=== PATIENT | female | born 1970 | race Caucasian/White ===

== ENCOUNTER 2017-07-26 17:07 | Emergency (ER) | payer BC, SELFPAY ==
[~2017-07-26] VITALS: Ht 157.5 cm; Wt 62.7 kg
[2017-07-26] MEDS ORDERED: PRED10PA2 PO (17:34)
[2017-07-26] MEDS ORDERED: LISI10TA4 PO (17:34)
[2017-07-26] MEDS ORDERED: FOLI1TAB4 PO (17:34)
[2017-07-26] MEDS ORDERED: NAPR500T PO (18:56)
[2017-07-26] MEDS ORDERED: SOMA350T PO (18:56)
[2017-07-26] MEDS ORDERED: diazePAM 5 MG TAB PO ONE (19:00)
[2017-07-26] MEDS ORDERED: NAPROXEN 250 MG TAB PO ONE (19:00)
[2017-07-26 19:23] VITALS: BP 122/81
== END 2017-07-26 19:48 | disposition home or self-care (01) ==
LOC: M ED 17:07
DX: M43.6 Torticollis (principal); M54.12 Radiculopathy, cervical region; I10 Essential (primary) hypertension; Z87.891 Personal history of nicotine dependence; Z88.5 Allergy status to narcotic agent; Z79.899 Other long term (current) drug therapy; Z79.52 Long term (current) use of systemic steroids

== ENCOUNTER 2020-12-29 15:39 | Emergency (ER) | payer OTHER, SELFPAY ==
[~2020-12-29] VITALS: Ht 162.6 cm; Wt 81.8 kg
[~2020-12-29 15:39] MED LIST: FOLI1TAB11 PO; LISI10TA22 PO; NAPR-837 PO; PRED10PA2 PO; SOMA350T PO
[2020-12-29] MEDS ORDERED: TOUJ1.2I SC (15:59)
[2020-12-29] MEDS ORDERED: ATOR1TAB19 PO (16:01)
[2020-12-29] MEDS ORDERED: XELJ5TAB PO (16:01)
[2020-12-29] MEDS ORDERED: NS 1,000 ML IV ONE (16:30)
--- OUTSIDE RECORDS SUMMARY | 2020-12-29 16:48 | CCD ---
Author Author Dr. Mariel Taveras Organization Dr. Mariel Taevras Address [address] [address] Care Team Providers Care Mid Level Game Designer Name Role Phone Teo MANAGER PORTABLE, Shalini valadez Unavailable ENCOUNTERS Encounter Performer Loca tion Date Pedal edema [SNOMED-CT: 596508402] Shalini Gil M.D. Rheumatoid arthritis [SNOMED-CT: 74579174] Shalini Gil M.D. Hypertension [SNOMED-CT: 54554047] Shalini Gil M.D. Diabetes mellitus [SNOMED-CT: 34755622] Shalini Gil M.D. ALLERGIES AND ADVERSE REACTIONS Substance Reaction Sever ity Status codeine (RxNorm: 2670) -- -- Active FUNCTIONAL STATUS There is no cognitive and functional status saved for this patient. IMMUNIZATIONS No known immunization history MEDICAL EQUIPMENT Patient has no history of implanted devices. MEDICATIONS Medication Generic Name Instructions Dosage Start Date Status Tounarendraowen SoloStar 300 units/mL subcutaneous solution insulin glargine 10 units sub q once daily 0 12/08/2020 Active folic acid 1 mg oral tablet, [RxNorm: 107777] folic acid Take 1 tablet by mouth once daily 0 12/08/2020 Active Xeljanz 5 mg oral tablet, [RxNorm: 8889514] tofacitinib Take 1 tablet by mouth once daily 0 12/08/2020 Active Lipitor 20 mg oral tablet, [RxNorm: 401724] atorvastatin Take 1 tablet by mouth every evening 30 12/08/2020 Active lisinopril 10 mg oral tablet, [RxNorm: 404682] lisinopril Take 1 tablet by mouth once daily 30 12/08/2020 Active INSURANCE PROVIDERS Payer Name Policy Type P linda ID Covered [employer] ID Policy [place] [employer] [id number] [facility] [id number] JE[employer] PAUL [employer] ASSESSMENTS # Rheumatoid arthritis (M06.9): Well controlled on xeljanz 5 mg po daily. Patient requests referral back to original Tar Processing Technician at [facility], Dr. roper REFER: Dr. Roper, rheumatology # New patient screening done (Z76.89): New establish patient, reviewed PFSH, medications, and allergies. Will obtain baseline labs and adjust plan of care accordingly. # Pedal edema (R60.0): + 1 pedal edema noted on PE. patient is asymptomatic at this time. Recommend conservative measures such as elevation of feet/compression stockings. # Hypertension (I10): BP well controlled in office at this time. Contonie current regimen of lisinopril 10 mg po daily # Diabetes mellitus (E11.9): Will obtain updated a1c and follow up in 4-6 weeks. Have added lipitor 20 mg po daily as recommended per ADA guidelines. This document was dictated and electronically signed using AIT software. A reasonable attempt at proofreading has been made to minimize errors. PROBLEMS Problem Problem Status D ate Started Date Resolved Date Inactivated Hypertension [SNOMED-CT: 96420443] Active 12-08-2020 NA NA Diabetes mellitus [SNOMED-CT: 09672292] Active 12-08-2020 NA NA Rheumatoid arthritis [SNOMED-CT: 31532835] Active 12-08-2020 NA NA Pedal edema [SNOMED-CT: 385597970] Active 12-08-2020 NA NA PROCEDURES No procedures information is available. REASON FOR REFERRAL No Reason for Referral information available. RESULTS No Lab Test required. No Lab results. SOCIAL HISTORY Social History Observation Description Dates Observed Smoking Status Former smoker, [SNOME D-CT: 0853677] 12/08/2020 - 12/08/2020 TREATMENT PLAN Encounter Date Planned Care 12/08/2020 09:09:26 PRESCRIBE: Lipitor 20 mg oral tablet, Take 1 tablet by mouth every evening, # 30, RF: 3. (Transmitted by Shalini Bruec NP) PRESCRIBE: lisinopril 10 mg oral tablet, Take 1 tablet by mouth once daily, # 30, RF: 1. (Transmitted by Shalini Bruce NP) CLINICAL SUMMARY: Declined by Patient (12/08/2020) PROVIDED: Patient Education (12/08/2020) Signed by: Shalini Bruce NP 12/08/2020 09:09:26 PROVIDED: Patient Education (12/08/2020) CLINICAL SUMMARY: Declined by Patient (12/08/2020) 12/08/2020 09:09:26 PRESCRIBE: Lipitor 20 mg oral tablet, Take 1 tablet by mouth every evening, # 30, RF: 3. (Transmitted by Shalini Bruce NP) PRESCRIBE: lisinopril 10 mg oral tablet, Take 1 tablet by mouth once daily, # 30, RF: 1. (Transmitted by Shalini Bruce NP) CLINICAL SUMMARY: Declined by Patient (12/08/2020) VITAL SIGNS Encounter Height (in) We ight (lb) BMI (kg/m2) BP Sys (mmHg) BP Grace (mmHg) Heart Rate (/min) O2 % BldC Oximetry O2 % BldC Oximetry (on O2) Body Temp erature Respiratory Rate (/min) Head Circumf OFC by Tape measure 12/08/2020 09:09:26 65 1 78 29.6 128 78 72 97 -- 98.1 F 18 -- GOALS No Goals Information. HEALTH CONCERNS No health concerns information is available. MENTAL STATUS No Mental Status information.
[2020-12-29 17:06] LABS: BASO # 0.1 10^3/uL (0.0-0.2); BASO % 1.1 % (0.0-1.0); EOS % 0.2 % (0.0-3.0); HEMATOCRIT 39.8 % (36.0-47.0); HEMOGLOBIN 12.9 g/dl (12.0-15.5); LYMPH # 1.3 10^3/uL (1.5-5.0); LYMPH % 20.7 % (24.0-44.0); MEAN CORPUSCULAR HEMOGLOBIN 30.5 pg (27.0-33.0); MEAN CORPUSCULAR HGB CONC 32.4 g/dl (32.0-36.5); MEAN CORPUSCULAR VOLUME 94.1 fl (80.0-96.0); MONO # 0.5 10^3/uL (0.0-0.8); MONO % 8.4 % (2.0-8.0); NEUTROPHILS # 4.4 10^3/uL (1.5-8.5); NEUTROPHILS % 69.3 % (36.0-66.0); PLATELET COUNT, AUTOMATED 361 10^3/uL (150-450); RED BLOOD COUNT 4.23 10^6/uL (4.00-5.40); WHITE BLOOD COUNT 6.3 10^3/uL (4.0-10.0)
[2020-12-29 17:26] LABS: ALBUMIN 4.2 GM/DL (3.2-5.2); ALT/SGPT 26 U/L (12-78); BILIRUBIN,DIRECT < 0.1 MG/DL (0.0-0.2); BILIRUBIN,TOTAL 0.3 MG/DL (0.2-1.0); LIPASE 96 U/L (73-393); TOTAL PROTEIN 7.6 GM/DL (6.4-8.2)
[2020-12-29] MEDS ORDERED: ISOVUE-370 76% 100ML VIAL As Ordered ONE (17:35)
--- NOTE | 2020-12-29 18:26 | REPVR ---
PROCEDURE INFORMATION: Exam: CT Abdomen And Pelvis With Contrast Exam date and time: 12/29/2020 5:33 PM Age: 50 years old Clinical indication: Abdominal pain; Additional info: R flank pain and rlq pain TECHNIQUE: Imaging protocol: Computed tomography of the abdomen and pelvis with contrast. Radiation optimization: All CT scans at this facility use at least one of these dose optimization techniques: automated exposure control; mA and/or kV adjustment per patient size (includes targeted exams where dose is matched to clinical indication); or iterative reconstruction. Contrast material: ISOVUE 370; Contrast volume: 100 ml; Contrast route: INTRAVENOUS (IV); COMPARISON: No relevant prior studies available. FINDINGS: Liver: There is a diffuse decrease in hepatic parenchymal density, consistent with steatosis. Gallbladder and bile ducts: Normal. No calcified stones. No ductal dilation. Pancreas: Normal. No ductal dilation. Spleen: Normal. No splenomegaly. Adrenal glands: Normal. No mass. Kidneys and ureters: Foci of parenchymal thinning demonstrated in the right kidney either related to lobation or prior infectious/inflammatory disease. Stomach and bowel: Unremarkable. No obstruction. No mucosal thickening. Appendix: The appendix is within normal limits. There is no appendiceal enlargement, periappendiceal inflammatory changes or abscess. Intraperitoneal space: Unremarkable. No free air. No significant fluid collection. Vasculature: The aortoiliac vessels demonstrate mild atherosclerotic calcification. Lymph nodes: Unremarkable. No enlarged lymph nodes. Urinary bladder: There is diffuse thickening of the wall of the bladder with mild perivesicular inflammatory changes. Clinical correlation to exclude cystitis suggested. Reproductive: There has been a hysterectomy. Bones/joints: Mild central spinal stenosis L3-L4 and moderate to severe central spinal stenosis L4-L5. Annular bulge L5-S1 without neural compromise. Age indeterminate, likely chronic, compression deformities of T12 and L1. Soft tissues: Small bilateral inguinal hernias without incarceration. IMPRESSION: 1. There is a diffuse decrease in hepatic parenchymal density, consistent with steatosis. 2. The appendix is within normal limits. There is no appendiceal enlargement, periappendiceal inflammatory changes or abscess. 3. There is diffuse thickening of the wall of the bladder with mild perivesicular inflammatory changes. Clinical correlation to exclude cystitis suggested. 4. Foci of parenchymal thinning demonstrated in the right kidney either related to lobation or prior infectious/inflammatory disease. 5. There has been a hysterectomy. COMMENTS: Consistent with the [employer]'s Incidental Findings Committee white paper (J Am Diony Radiol 2018): Any incidental renal lesion less than 1 cm or classified as too small to characterize, or any incidental cystic renal lesion characterized as simple-appearing, is likely benign. No follow-up imaging is recommended for these lesions per consensus recommendations based on imaging criteria. Electronically signed by: Kamron Barnes On 12/29/2020 18:26:14 PM
[2020-12-29 18:53] VITALS: BP 123/77
--- NOTE | 2020-12-31 14:16 | ED PDOC ---
Post-Departure Follow-Up ceertified letter sent pertaining to radiology report Leona Orozco MD Dec 31, 2020 14:16
== END 2020-12-29 18:57 | disposition home or self-care (01) ==
LOC: EDBD 15:39 → M ED 15:39
DX: M51.27 Other intervertebral disc displacement, lumbosacral region (principal); M48.07 Spinal stenosis, lumbosacral region; K40.20 Bilateral inguinal hernia, without obstruction or gangrene, not specified as recurrent; E10.9 Type 1 diabetes mellitus without complications; I10 Essential (primary) hypertension
CPT/HCPCS: 74177; 80047; 80076; 81001; 83690; 85025; 96360; 96361; 99284; Q9967

== ENCOUNTER → 2022-08-29 | Outpatient (REF) | payer OTHER ==
[~2022-08-29] MED LIST changes: +ATOR1TAB19 PO; +TOUJ1.2I SC; +XELJ5TAB PO
[2022-08-29 13:40] LABS: APPEARANCE, URINE MANUAL CLEAR (CLEAR); COLOR, URINE MANUAL LT YELLOW (YELLOW)
[2022-08-29 13:41] LABS: BILIRUBIN, URINE MANUAL NEGATIVE (NEGATIVE); BLOOD URINE MANUAL NEGATIVE (NEGATIVE); GLUCOSE, URINE (UA) MANUAL NEGATIVE (NEGATIVE); KETONE, URINE MANUAL 1+ mg/dL (NEGATIVE); LEUKOCYTE ESTERASE, URINE MAN NEGATIVE (NEGATIVE); NITRITE, URINE MANUAL NEGATIVE (NEGATIVE); PROTEIN, URINE MANUAL NEGATIVE (NEGATIVE); UROBILINOGEN, URINE MANUAL NORMAL (NORMAL)
[2022-08-29 13:48] LABS: BASO % 0.8 % (0.0-1.0); EOS % 0.6 % (0.0-3.0); HEMATOCRIT 41.9 % (36.0-47.0); HEMOGLOBIN 13.5 g/dl (12.0-15.5); LYMPH # 1.2 10^3/uL (1.5-5.0); LYMPH % 23.5 % (24.0-44.0); MEAN CORPUSCULAR HEMOGLOBIN 30.7 pg (27.0-33.0); MEAN CORPUSCULAR HGB CONC 32.2 g/dl (32.0-36.5); MEAN CORPUSCULAR VOLUME 95.2 fl (80.0-96.0); MONO # 0.4 10^3/uL (0.0-0.8); MONO % 7.9 % (2.0-8.0); NEUTROPHILS # 3.4 10^3/uL (1.5-8.5); PLATELET COUNT, AUTOMATED 390 10^3/uL (150-450); WHITE BLOOD COUNT 5.1 10^3/uL (4.0-10.0)
[2022-08-29 14:35] LABS: ALBUMIN 4.4 GM/DL (3.2-5.2); ALT/SGPT 32 U/L (12-78); BILIRUBIN,DIRECT 0.1 MG/DL (0.0-0.2); BILIRUBIN,TOTAL 0.4 MG/DL (0.2-1.0); BLOOD UREA NITROGEN 11 MG/DL (7-18); CALCIUM LEVEL 9.3 MG/DL (8.5-10.1); CARBON DIOXIDE LEVEL 27 MEQ/L (21-32); CHLORIDE LEVEL 104 MEQ/L (98-107); COMPLEMENT C3 119 MG/DL (90-180); COMPLEMENT C4 27 MG/DL (10-40); GLOMERULAR FILTRATION RATE > 60.0 (>51); GLUCOSE, FASTING 184 MG/DL (70-100); IMMUNOGLOBULIN G 1090 MG/DL (681-1648); POTASSIUM SERUM 4.2 MEQ/L (3.5-5.1); SODIUM LEVEL 136 MEQ/L (136-145); TOTAL PROTEIN 8.3 GM/DL (6.4-8.2)
[2022-08-29 14:38] LABS: CREATININE,RANDOM URINE 19.8 MG/DL; TOTAL PROTEIN,RANDOM URINE < 5.0 MG/DL (0.0-12.0)
[2022-08-29 14:57] LABS: ERYTHROCYTE SEDIMENTATION RATE 15 mm/hr (0-30)
[2022-08-29 15:02] LABS: HEPATITIS B SURFACE ANTIBODY NEGATIVE (POSITIVE)
[2022-08-29 15:13] LABS: HEPATITIS B SURFACE ANTIGEN NEGATIVE (NEGATIVE)
[2022-08-29 15:42] LABS: HEPATITIS C VIRUS ABY INDEX < 0.0 INDEX (<0.8)
[2022-08-30 07:07] LABS: HEPATITIS B CORE ANTIBODY IGG Negative (Negative)
[2022-08-30 10:42] LABS: DRVV SCREEN 32.2 SEC
[2022-08-30 10:48] LABS: PTT LUPUS TYPE ANTICOAG SCREEN 0.9 (0-1.2)
[2022-08-30 11:53] LABS: ALBUMIN 4.84 GM/DL (3.29-5.55); ALBUMIN % 58.3 % (55.8-66.1); ALPHA-1-GLOBULIN % 3.7 % (2.9-4.9); ALPHA-1-GLOBULINS 0.31 GM/DL (0.17-0.41); ALPHA-2-GLOBULINS 0.75 GM/DL (0.42-0.99); BETA-1-GLOBULINS 0.56 GM/DL (0.28-0.60); BETA-1-GLOBULINS % 6.8 % (4.7-7.2); BETA-2-GLOBULINS 0.56 GM/DL (0.19-0.55); BETA-2-GLOBULINS % 6.7 % (3.2-6.5); GAMMA GLOBULIN % 15.5 % (11.1-18.8); GAMMA GLOBULINS 1.29 GM/DL (0.65-1.58)
[2022-08-30 14:08] LABS: COMPLEMENT TOTAL (CH50) > 60 U/mL (>41)
== END ==
LOC: M SFHCRHEU 10:47
PROVIDERS: ATTEND Internal Medicine
DX: Z11.59 Encounter for screening for other viral diseases (principal); M05.9 Rheumatoid arthritis with rheumatoid factor, unspecified; R76.8 Other specified abnormal immunological findings in serum

== ENCOUNTER → 2022-09-07 | Outpatient (CLI) | payer OTHER | LOC: M WHC 09:01 | PROVIDERS: ATTEND Internal Medicine | DX: M85.851 Other specified disorders of bone density and structure, right thigh (principal); M85.852 Other specified disorders of bone density and structure, left thigh; Z78.0 Asymptomatic menopausal state ==

== ENCOUNTER → 2022-09-07 | Outpatient (CLI) | payer OTHER | LOC: M PLAIMG 10:06 | PROVIDERS: ATTEND Internal Medicine | DX: M05.9 Rheumatoid arthritis with rheumatoid factor, unspecified (principal); Z15.89 Genetic susceptibility to other disease; M77.31 Calcaneal spur, right foot; M77.32 Calcaneal spur, left foot ==

== ENCOUNTER → 2022-10-24 | Outpatient (REF) | payer OTHER ==
[2022-10-24 16:59] LABS: MAGNESIUM LEVEL 1.8 MG/DL (1.8-2.4)
[2022-10-24 17:00] LABS: CALCIUM LEVEL 10.2 MG/DL (8.5-10.1); PHOSPHORUS LEVEL 3.8 MG/DL (2.5-4.9); PTH INTACT 30.5 PG/ML (18.5-88.0)
[2022-10-24 17:01] LABS: TOTAL 25(OH) VITAMIN D 19.3 NG/ML (20.0-100.0)
== END ==
LOC: M SFHCRHEU 14:40
PROVIDERS: ATTEND Internal Medicine
DX: M85.80 Other specified disorders of bone density and structure, unspecified site (principal)

== ENCOUNTER → 2023-02-23 | Outpatient (REF) | payer OTHER ==
[2023-02-23 13:13] LABS: BASO # 0.1 10^3/uL (0.0-0.2); BASO % 1.3 % (0.0-1.0); EOS % 0.4 % (0.0-3.0); HEMATOCRIT 42.2 % (36.0-47.0); HEMOGLOBIN 13.4 g/dl (12.0-15.5); LYMPH # 1.5 10^3/uL (1.5-5.0); LYMPH % 27.9 % (24.0-44.0); MEAN CORPUSCULAR HEMOGLOBIN 30.7 pg (27.0-33.0); MEAN CORPUSCULAR HGB CONC 31.8 g/dl (32.0-36.5); MEAN CORPUSCULAR VOLUME 96.8 fl (80.0-96.0); MONO # 0.4 10^3/uL (0.0-0.8); MONO % 6.8 % (2.0-8.0); NEUTROPHILS # 3.4 10^3/uL (1.5-8.5); NEUTROPHILS % 63.2 % (36.0-66.0); PLATELET COUNT, AUTOMATED 320 10^3/uL (150-450); RED BLOOD COUNT 4.36 10^6/uL (4.00-5.40); WHITE BLOOD COUNT 5.4 10^3/uL (4.0-10.0)
[2023-02-23 13:49] LABS: TOTAL 25(OH) VITAMIN D 49.4 NG/ML (20.0-100.0)
[2023-02-23 13:50] LABS: ALBUMIN 4.1 G/DL (3.2-5.2); ALKALINE PHOSPHATASE 60 U/L (46-116); ALT/SGPT 22 U/L (7.0-40); AST/SGOT 16 U/L (<34); BILIRUBIN,DIRECT 0.1 MG/DL (<0.4); BILIRUBIN,TOTAL 0.4 MG/DL (0.3-1.2); BLOOD UREA NITROGEN 14 MG/DL (9-23); CALCIUM LEVEL 9.4 MG/DL (8.5-10.1); CARBON DIOXIDE LEVEL 28 MMOL/L (20-31); CHLORIDE LEVEL 104 MMOL/L (98-107); CREATININE FOR GFR 0.57 MG/DL (0.55-1.30); ERYTHROCYTE SEDIMENTATION RATE 18 mm/hr (0-30); GLOMERULAR FILTRATION RATE > 60.0 (>51); GLUCOSE, FASTING 122 MG/DL (60-100); POTASSIUM SERUM 5.1 MMOL/L (3.5-5.1); SODIUM LEVEL 138 MMOL/L (136-145); TOTAL PROTEIN 7.2 G/DL (5.7-8.2)
[2023-02-23 14:50] LABS: C REACTIVE PROTEIN QUANTITATIV < 0.40 MG/DL (<1.0)
== END ==
LOC: M SFHCRHEU 10:59
PROVIDERS: ATTEND Internal Medicine
DX: M05.9 Rheumatoid arthritis with rheumatoid factor, unspecified (principal); E55.9 Vitamin D deficiency, unspecified

== ENCOUNTER → 2025-01-27 | Outpatient (CLI) | payer OTHER | LOC: M WHC 08:58 | PROVIDERS: ATTEND Internal Medicine | DX: M81.0 Age-related osteoporosis without current pathological fracture (principal) ==

== ENCOUNTER → 2025-09-18 | Outpatient (REF) | payer OTHER | LOC: M SFHCRHEU 13:30 | PROVIDERS: ATTEND Internal Medicine | DX: E55.9 Vitamin D deficiency, unspecified (principal) ==